=== PATIENT | female | born 1985 | race Caucasian/White ===

== ENCOUNTER 2019-01-08 11:50 | Emergency (ER) | payer OTHER ==
[~2019-01-08] VITALS: Ht 157.5 cm; Wt 75.0 kg
[2019-01-08 12:10] LABS: GLUCOSE,POINT OF CARE 251 MG/DL (70-110)
[2019-01-08] MEDS ORDERED: FLUT16H NASAL (12:12)
[2019-01-08] MEDS ORDERED: ATOR10TA84 PO (12:12)
[2019-01-08] MEDS ORDERED: IBUP-2070 PO (12:12)
[2019-01-08] MEDS ORDERED: METF-960 PO (12:12)
[2019-01-08] MEDS ORDERED: SITA100 PO (12:12)
[2019-01-08] MEDS ORDERED: LISI-660 PO (12:12)
[2019-01-08] MEDS ORDERED: EMPA25TA PO (12:12)
[2019-01-08 13:35] VITALS: BP 132/88
== END 2019-01-08 13:58 | disposition home or self-care (01) ==
LOC: EMS 11:50
DX: L03.312 Cellulitis of back [any part except buttock and flank] (principal); I10 Essential (primary) hypertension; E11.9 Type 2 diabetes mellitus without complications; E78.00 Pure hypercholesterolemia, unspecified; R03.0 Elevated blood-pressure reading, without diagnosis of hypertension; Z79.84 Long term (current) use of oral hypoglycemic drugs